=== PATIENT | male | born 1955 | race Caucasian/White ===

== ENCOUNTER 2017-10-14 12:21 | Inpatient (IN) | payer BC ==
[2017-10-14] MEDS ORDERED: SODIUM CHLORIDE 0.9% 1000ML 1,000 ML IV ONE ×2 (12:50→12:55)
[2017-10-14] MEDS: SODIUM CHLORIDE 0.9% FLUSH 10 ML SOL IV PRN (12:50)
[2017-10-14] MEDS ORDERED: ONDANSETRON HCL 4 MG/2 ML SOL ONE (12:52)
[2017-10-14] MEDS ORDERED: ONDANSETRON HCL 4 MG/2 ML SOL IV ONE (12:55)
[2017-10-14 12:56] LABS: LACTIC ACID 1.3 mMol/L (0.0-2.0)
[2017-10-14 12:58] LABS: HEMATOCRIT 49 % (39-53); HEMOGLOBIN 16.3 gm/dl (13.5-17.7); MEAN CORPUSCULAR HEMOGLOBIN 28.2 pg (27.0-32.0); MEAN CORPUSCULAR HGB CONC 32.9 gm/dl (32.0-36.0); MEAN CORPUSCULAR VOLUME 86 fL (80-100)
[2017-10-14] MEDS ORDERED: CEFTRIAXONE 1 GM PDS 1 GM in SODIUM CHLORIDE 0.9% 50 ML 50 ML IV ONE (13:02)
[2017-10-14 13:07] LABS: ALBUMIN 3.6 gm/dl (3.4-5.0); CALCIUM 8.5 mg/dl (8.5-10.1); CARBON DIOXIDE 25.1 mEq/L (21-32); CREATININE 1.15 mg/dl (0.80-1.30); POTASSIUM 4.1 mMol/L (3.5-5.1); TOTAL PROTEIN 7.5 gm/dl (6.4-8.2)
[2017-10-14] MEDS ORDERED: KETOROLAC TROMETHAMINE 30 MG/ML SOL ONE (13:19)
[2017-10-14] MEDS ORDERED: KETOROLAC TROMETHAMINE 30 MG/ML SOL IV ONE (13:19)
[2017-10-14 13:23] LABS: BAND NEUTROPHILS % (MANUAL) 1 %; BASOPHILS % (MANUAL) 0 % (0-3); EOSINOPHILS % (MANUAL) 0 % (0-9); LYMPHOCYTES % (MANUAL) 8 % (10-50); MONOCYTES % (MANUAL) 6 % (0-12); NEUTROPHILS % (MANUAL) 85 % (37-80); NORMAL RBCS NORMAL RBCS
[2017-10-14 13:28] LABS: APPEARANCE,URINE Slightly Cloudy; BILIRUBIN,URINE NEGATIVE (NEGATIVE); COLOR,URINE Dark yellow; GLUCOSE, URINE (UA) NEGATIVE (NEGATIVE); KETONES,URINE NEGATIVE (NEGATIVE); LEUKOCYTE ESTERASE ,URINE 1+ (NEGATIVE); NITRATE,URINE POSITIVE (NEGATIVE); OCCULT BLOOD,URINE 1+ (NEG-TRACE); UROBILINOGEN,URINE 0.2 (0.2-1.0 EU)
[2017-10-14 13:41] LABS: BACTERIA 1+ (< 1+); CRYSTALS NEGATIVE (0-3 AVE/HPF); EPITHELIAL CELLS 0-2 (SQUAMOUS); WBC,URINE 80-100 (0-5AV/HPF)
[2017-10-14] MEDS ORDERED: CEFTRIAXONE 1 GM PDS ONE (13:54)
[2017-10-14] MEDS: ACETAMINOPHEN 500 MG 500 MG TAB PO PRN (16:08)
[2017-10-14] MEDS: ENOXAPARIN 40 MG SOL SC SCH (16:08)
[2017-10-14] MEDS: IBUPROFEN 600 MG TAB PO PRN (17:45)
[2017-10-14] MEDS ORDERED: VANCOMYCIN HCL 500 MG PDS 1,500 MG in SODIUM CHLORIDE 0.9% 250 ML 250 ML IV ONE (19:11)
[2017-10-14] MEDS ORDERED: SODIUM CHLORIDE 0.9% 250 ML 250 ML IV ONE (19:41)
[2017-10-14] MEDS ORDERED: VANCOMYCIN HYDROCHLORIDE 500 MG PDS IV ONE (19:41)
[2017-10-14] MEDS: TAMSULOSIN HYDROCHLORIDE 0.4 MG CAP PO SCH (21:24)
[2017-10-14] MEDS: ATORVASTATIN 10 MG TAB PO SCH (21:24)
[2017-10-14] MEDS: ASPIRIN EC 81 MG PO SCH (21:24)
[2017-10-14] MEDS: SODIUM CHLORIDE 0.9% 1000ML 1,000 ML IV SCH (21:26)
[2017-10-14] MEDS ORDERED: OXYBUTYNIN CHLORIDE 5 MG TAB PO SCH (21:30)
[2017-10-15] MEDS: ACETAMINOPHEN 500 MG 500 MG TAB PO PRN ×2 (00:21→11:42)
[2017-10-15] MEDS: IBUPROFEN 600 MG TAB PO PRN ×2 (01:22→13:06)
[2017-10-15] MEDS: SODIUM CHLORIDE 0.9% 1000ML 1,000 ML IV SCH (05:18)
[2017-10-15] MEDS ORDERED: VANCOMYCIN HYDROCHLORIDE 500 MG PDS IV ONE (06:24)
[2017-10-15] MEDS ORDERED: SODIUM CHLORIDE 0.9% 250 ML 250 ML IV ONE (06:24)
[2017-10-15 07:31] LABS: HEMATOCRIT 45 % (39-53); HEMOGLOBIN 14.8 gm/dl (13.5-17.7); MEAN CORPUSCULAR HEMOGLOBIN 28.5 pg (27.0-32.0); MEAN CORPUSCULAR HGB CONC 32.9 gm/dl (32.0-36.0); MEAN CORPUSCULAR VOLUME 87 fL (80-100)
[2017-10-15 07:38] LABS: CALCIUM 8.2 mg/dl (8.5-10.1); CREATININE 1.26 mg/dl (0.80-1.30); POTASSIUM 4.1 mMol/L (3.5-5.1)
[2017-10-15 07:48] LABS: CARBON DIOXIDE 28.2 mEq/L (21-32)
[2017-10-15 07:54] LABS: ANISOCYTOSIS SLIGHT AMT; BAND NEUTROPHILS % (MANUAL) 10 %; BASOPHILS % (MANUAL) 0 % (0-3); EOSINOPHILS % (MANUAL) 0 % (0-9); LYMPHOCYTES % (MANUAL) 4 % (10-50); MONOCYTES % (MANUAL) 7 % (0-12); NEUTROPHILS % (MANUAL) 79 % (37-80); PLATELET MORPHOLOGY COMMENT NORMAL; POIKILOCYTOSIS SLIGHT AMT
[2017-10-15 07:55] LABS: BURR CELLS OCCASIONAL
[2017-10-15] MEDS ORDERED: CEFTRIAXONE 1 GM PDS 1 GM in SODIUM CHLORIDE 0.9% 50 ML 50 ML IV SCH (08:00)
[2017-10-15] MEDS ORDERED: VANCOMYCIN HCL 500 MG PDS 1,000 MG in SODIUM CHLORIDE 0.9% 250 ML 250 ML IV SCH (08:00)
[2017-10-15] MEDS: CITALOPRAM 20 MG TAB PO SCH (08:51)
[2017-10-15] MEDS: AMLODIPINE 5 MG TAB PO SCH (08:51)
[2017-10-15] MEDS: SODIUM CHLORIDE 0.45% 1000 ML 1,000 ML with POTASSIUM CHLORIDE 2 MEQ/ML 20 MEQ IV SCH ×3 (09:13→18:41)
[2017-10-15] MEDS ORDERED: SODIUM CHLORIDE 0.9% 50 ML 50 ML IV ONE ×2 (09:22→21:13)
[2017-10-15] MEDS ORDERED: CEFTRIAXONE 1 GM PDS ONE ×2 (09:22→21:13)
[2017-10-15] MEDS: CEFTRIAXONE 1 GM PDS 1 GM in SODIUM CHLORIDE 0.9% 50 ML 50 ML IV SCH ×2 (09:46→21:34)
[2017-10-15] MEDS ORDERED: POTASSIUM CHLORIDE 2 MEQ/ML SOL IV ONE ×3 (12:42→23:04)
[2017-10-15] MEDS: POLYETHYLENE GLYCOL 17 GM/1 TBS PDS PO SCH (13:46)
[2017-10-15] MEDS: TRAMADOL HYDROCHLORIDE 50 MG TAB PO PRN (14:33)
[2017-10-15] MEDS: ENOXAPARIN 40 MG SOL SC SCH (16:21)
[2017-10-15] MEDS ORDERED: MULTIVITAMIN2 1 EA TAB PO SCH (21:00)
[2017-10-15] MEDS: ASPIRIN EC 81 MG PO SCH (21:32)
[2017-10-15] MEDS: TAMSULOSIN HYDROCHLORIDE 0.4 MG CAP PO SCH (21:33)
[2017-10-15] MEDS: ATORVASTATIN 10 MG TAB PO SCH (21:33)
[2017-10-16] MEDS: SODIUM CHLORIDE 0.45% 1000 ML 1,000 ML with POTASSIUM CHLORIDE 2 MEQ/ML 20 MEQ IV SCH ×2 (01:01→06:54)
[2017-10-16] MEDS: TRAMADOL HYDROCHLORIDE 50 MG TAB PO PRN (01:03)
[2017-10-16 01:05] VITALS: RESP 18
[2017-10-16] MEDS ORDERED: POTASSIUM CHLORIDE 2 MEQ/ML SOL IV ONE (06:48)
[2017-10-16 07:17] LABS: CALCIUM 7.8 mg/dl (8.5-10.1); CARBON DIOXIDE 23.2 mEq/L (21-32); POTASSIUM 4.2 mMol/L (3.5-5.1)
[2017-10-16 07:18] LABS: BASOPHILS % (AUTO) 1 % (0-3); EOSINOPHILS % (AUTO) 2 % (0-9); HEMATOCRIT 38 % (39-53); HEMOGLOBIN 12.8 gm/dl (13.5-17.7); LYMPHOCYTES % (AUTO) 13.6 % (10-50); MEAN CORPUSCULAR HEMOGLOBIN 28.9 pg (27.0-32.0); MEAN CORPUSCULAR HGB CONC 33.7 gm/dl (32.0-36.0); MEAN CORPUSCULAR VOLUME 86 fL (80-100); MONOCYTES % (AUTO) 7.4 % (0-12); NEUTROPHILS % (AUTO) 76.5 % (37-80)
[2017-10-16] MEDS ORDERED: BISACODYL 5 MG TAB ECT PO PRN (07:50)
[2017-10-16] MEDS: IBUPROFEN 600 MG TAB PO PRN (08:25)
[2017-10-16 08:54] VITALS: O2SAT 95
[2017-10-16] MEDS: CITALOPRAM 20 MG TAB PO SCH (08:57)
[2017-10-16] MEDS: POLYETHYLENE GLYCOL 17 GM/1 TBS PDS PO SCH (08:57)
[2017-10-16] MEDS: AMLODIPINE 5 MG TAB PO SCH (08:57)
[2017-10-16] MEDS: SODIUM CHLORIDE 0.9% FLUSH 10 ML SOL IV PRN (08:59)
[2017-10-16] MEDS ORDERED: PANTOPRAZOLE SODIUM 40 MG ECT PO SCH (09:00)
[2017-10-16] MEDS ORDERED: CEFDINIR 300 MG CAP PO SCH (09:00)
[2017-10-16 12:48] VITALS: BP 99/62; PULSE 58; TEMP 96.4
== END 2017-10-16 14:35 | disposition home or self-care (01) | DRG 463 ==
LOC: ED 12:21 → UNDOADMIN 13:42 → ACUTE CARE 13:42
PROVIDERS: ADMIT Family Medicine; ATTEND Family Medicine
DX: N30.00 Acute cystitis without hematuria (principal); B96.20 Unspecified Escherichia coli [E. coli] as the cause of diseases classified elsewhere
CPT/HCPCS: 36415; 51798; 80048; 80053; 81001; 85007; 85025; 85027; 87040; 87077; 87088; 87186; 96365; 96374; 96375; 99070; 99283; 99285; J0696; J1650; J1885; J2405; J3370; J3480; A9270-GY

== ENCOUNTER 2017-10-16 20:33 | Emergency (ER) | payer BC ==
[2017-10-16] MEDS ORDERED: ALBUTEROL/IPRATROPIUM 1 VIAL SOL ONE (21:06)
[2017-10-16] MEDS ORDERED: ALBUTEROL/IPRATROPIUM 1 VIAL SOL INH ONE (21:07)
[2017-10-16] MEDS ORDERED: ACETAMINOPHEN 500 MG 500 MG TAB PO ONE (22:45)
[2017-10-16] MEDS ORDERED: ACETAMINOPHEN 500 MG 500 MG TAB ONE (22:46)
[2017-10-16] MEDS ORDERED: FUROSEMIDE 40 MG SOL IV ONE (23:46)
[2017-10-17] MEDS ORDERED: FUROSEMIDE 40 MG SOL ONE (00:13)
[2017-10-17 01:14] VITALS: BP 128/71; PULSE 64; RESP 20; TEMP 99; O2SAT 92
== END 2017-10-17 01:00 | disposition home or self-care (01) ==
LOC: ED 20:33
DX: R63.5 Abnormal weight gain (principal); I50.9 Heart failure, unspecified; R79.1 Abnormal coagulation profile; I50.1 Left ventricular failure, unspecified
CPT/HCPCS: 36415; 51798; 71045; 71275; 83880; 85378; 87088; 93005; 96374; 99284; 99285; J1940; Q9967